=== PATIENT | female | born 1980 | race Caucasian/White ===

== ENCOUNTER 2016-10-17 07:51 | Day surgery (SDC) | payer OTHER ==
[2016-10-12 12:16] LABS: HEMATOCRIT 38.8 % (36.0-48.0); HEMOGLOBIN 13.1 g/dL (12.0-16.0)
[2016-10-12 12:39] LABS: A/G RATIO 1.1 (0.7-1.9); ALBUMIN 3.7 G/DL (3.5-5.0); ALKALINE PHOSPHATASE 86 U/L (45-117); BUN (BLOOD UREA NITROGEN) 13 MG/DL (6-23); CALCIUM, SERUM 8.3 MG/DL (8.5-10.4); CHLORIDE, SERUM 105 MMOL/L (96-112); CO2 (CARBON DIOXIDE) 27 MMOL/L (24-34); CREATININE 0.85 MG/DL (0.55-1.02); GFR AFRICAN AMERICAN 102 ML/MIN (>=60); GFR NON AFRICAN AMERICAN 88 ML/MIN (>=60); GLOBULIN 3.3 G/DL (2.5-4.1); GLUCOSE, SERUM 83 MG/DL (60-99); POTASSIUM, SERUM 4.2 MMOL/L (3.5-5.3); SGOT(AST) 22 U/L (5-40); SGPT(ALT) 17 U/L (5-65); SODIUM, SERUM 140 MMOL/L (135-148); TOTAL BILIRUBIN 1.3 MG/DL (0-1.2)
--- NOTE | ~2016-10-17 | OP ---
Record Of Operation [facility] [address] [place]. [address] NAME: ADRIAN CARR : 80 STATUS : [facility]#: [id number] AGE: 36 ADM/REG DATE : 10/17/16 MR#: [id number] REPORT SERV DATE: 10/18/16 DICTATED BY: EMILIO CRUZ DATE: 10/17/16 REPORT STATUS : Draft TRANSCRIBED BY: MODL DATE: 10/17/16 DATE OF PROCEDURE: 10/17/2016 PREOPERATIVE DIAGNOSIS: Chronic cholecystitis. POSTOPERATIVE DIAGNOSIS: Chronic cholecystitis. PROCEDURE: Laparoscopic cholecystectomy (2 site). SURGEON: Emilio Cruz M.D. DESCRIPTION OF OPERATIVE PROCEDURE: The patient was brought to the operating suite, placed in supine position, underwent satisfactory general endotracheal anesthesia without incident. The skin of the abdomen was scrubbed, prepped, and draped in usual sterile fashion. 0.5% Marcaine with epinephrine utilized as supplemental local anesthesia at all intended trocar sites. Initially, an infraumbilical incision was performed dissecting through the skin and subcutaneous tissue to the umbilical fascia. This was in turn grasped and elevated, and a disposable Veress insufflation needle was inserted through the umbilical fascia into the peritoneal cavity following which a rigid forward-viewing 10 mm laparoscope was inserted. Visualization of the intraabdominal parietes revealed no evidence of injury from initial insufflation or puncture. Cursory examination of the pelvis was normal. Attention was turned to the upper abdomen where an additional 5 mm trocar was placed to the right of falciform ligament. An additional 5 mm grasping instrument inserted through the umbilical trocar next to the umbilical fascia. Fundus and body of the gallbladder grasped and elevated exposing the infundibular region. Dissection of triangle of Calot was successful in identifying, skeletonizing, and isolating the cystic duct and cystic duct common duct junction as well as the cystic artery. Both of these structures were controlled with multiple applications of the Weck 5 mm polymer clip system and divided. Then, using spatula cautery dissection, the peritoneal attachments to the gallbladder and liver were divided. The gallbladder was removed from the subhepatic space. Hemostasis was assured. Next, the camera was switched to the 5 mm epigastric port. The gallbladder was grasped by its neck through the umbilical port and withdrawn through the umbilicus and delivered. It was opened and found to contain no stones. CO2 was allowed to egress from peritoneal cavity. No muscular bleeding was noted. The umbilicus was closed with [id number] suture of 0 Vicryl, subcutaneous tissue closed at all sites with interrupted 4-0 Vicryl and running subcuticular stitch of 4-0 Vicryl for the skin. Dermabond skin adhesive placed. Record Of Operation [address] [place]. [address] NAME: ADRIAN CARR : 80 STATUS : [facility] PAT#: [id number] AGE: 36 ADM/REG DATE : 10/17/16 MR#: [id number] REPORT SERV DATE: 10/18/16 DICTATED BY: EMILIO CRUZ DATE: 10/17/16 REPORT STATUS : Draft TRANSCRIBED BY: IVETH DATE: 10/17/16 The patient tolerated the procedure well and was returned to PACU in stable condition. At termination of procedure, sponge, needle, lap, and instrument counts were correct x3. Estimated blood loss was less than 5 mL. DEBRA/IVETH Emilio Cruz M.D. / [id number] CC: Jerrell Smith Scott
[~2016-10-17 07:51] MED LIST: FOLIC PO; LEXAPRO10 PO
== END 2016-10-17 17:55 | disposition home or self-care (01) ==
LOC: SDC 07:51
PROVIDERS: Specialist
PROC: 0FT44ZZ Resection of Gallbladder, Percutaneous Endoscopic Approach (ICD-10-PCS; principal; 2016-10-17 09:30)
DX: K81.1 Chronic cholecystitis (principal); I49.9 Cardiac arrhythmia, unspecified; Z98.890 Other specified postprocedural states; Z79.899 Other long term (current) drug therapy
CPT/HCPCS: 76000; 80053; 84703; 85014; 85018; 88304; A9270-GY; J0690; J1170; J1885; J2250; J2405; J2550; J2710; J3010